=== PATIENT | male | born 1965 | race Caucasian/White ===

== ENCOUNTER → 2017-08-24 | Day surgery (SDC) | payer BC ==
[2017-08-17 15:32] VITALS: BMI 50.3
[~2017-08-24] MED LIST: ALPRAZolam 0.25 MG TAB PO PRN; ALPRAZolam 0.5 MG TAB PO PRN; ASPIRIN 325 MG TAB PO STA; ATORVASTATIN 40 MG TAB PO SCH; ATORVASTATIN 80 MG TAB PO STA; HEPARIN SODIUM 1,000 UN/ML (10ML VL) IV ONE; HEPARIN SODIUM 1,000 UN/ML (10ML VL) ONE; HYDROCHLOROTHIAZIDE 25 MG TAB PO SCH; IOHEXOL 350 MG/ML 125ML BOTTLE INJ ONE; Insulin Aspart (For Pump) 100 UNIT/ML VIAL SQ-PUMP SCH; LIDOCAINE 2% INJ 20 MG/ML (20 ML MDV) ONE; LIDOCAINE 2% INJ 20 MG/ML SQ ONE; MULTIVITAMINS, THERA 1 EACH TAB PO SCH; NITROGLYCERIN SL TABS 0.4 MG TAB SUBLINGUAL PRN; NON-FORMULARY DRUG (Aspirin [Adult Low Dose Aspirin Ec] 81 MG) PO SCH; RAMIPRIL 10 MG PO SCH; RX INFO: IV CONTRAST WAS GIVEN 1 EACH MISC MISCELLANE PRN; SODIUM CHLORIDE 0.9% 1,000 ML IV SCH; SODIUM CHLORIDE 0.9% 1,000 ML in EMPTY BAG 1 BAG IV ONE; VERAPAMIL 2.5 MG/ML 2 ML AMP ONE; VERAPAMIL SYRINGE (5 MG/10 ML) INTRAARTER ONE; diphenhydrAMINE 50 MG/ML 1 ML VIAL IVP ONE; diphenhydrAMINE 50 MG/ML 1 ML VIAL ONE; fentaNYL (PF) 50 MCG/ML 2 ML AMP IV ONE; fentaNYL (PF) 50 MCG/ML 2 ML AMP ONE
[2017-08-24 09:37] VITALS: RESP 18; TEMP 98
[2017-08-24 09:46] LABS: Glucose,Whole Blood 286 mg/dL (75-99)
[2017-08-24 10:32] LABS: Glucose,Whole Blood 300 mg/dL (75-99)
[2017-08-24 11:55] LABS: Glucose,Whole Blood 291 mg/dL (75-99)
--- NOTE | 2017-08-24 12:21 | CC ---
CARDIAC CATHETERIZATION REPORT Mr. Frank is a 52-year-old male with known history of hypertension, hyperlipidemia, diabetes mellitus, who had episode of arrhythmia. He has dyspnea on exertion. Underwent myocardial perfusion imaging that revealed evidence of inducible ischemia involving the inferoapical wall. In view of that, recommendation was made regarding cardiac catheterization. The procedure as well as the risks and complications were discussed with the patient who is in full understanding and agreement. PROCEDURE: Patient was brought to the computer lab aide in a fasting semi-sedated state after receiving fentanyl and Benadryl and achieving moderate conscious sedated state. Using Xylocaine anesthesia in the Seldinger technique, 6-[place] sheath was introduced in the right radial artery. Selective right and left coronary angiography performed using 5-[place] 3.5 bend right and left Amy catheter. Multiple views of the coronary artery including hemiaxial views were obtained. Following that, 5-[place] tight pigtail catheter was introduced into the left ventricle and a 30-degree DEL CID view of the left ventricle was obtained. Following that, the catheter and sheaths were removed. Hemostasis was obtained with deployment of a TR band. There was no immediate complication. Patient is returned to his room in stable condition. Of note, the patient received 5000 units of intravenous heparin as well as intra-arterial verapamil. FINDINGS: LEFT MAIN: This is a large-size vessel bifurcating in left circumflex and left anterior descending artery. Left main coronary artery is without any significant obstructive coronary artery disease. LEFT ANTERIOR DESCENDING ARTERY: This is a large-size vessel reaching towards the apex with a wraparound apex segment giving rise to a large diagonal branch. The left anterior descending artery as well as branches have no evidence of obstructive coronary artery disease. LEFT CIRCUMFLEX: This is a nondominant vessel giving. It is moderate to small in caliber giving rise to 2 obtuse marginal branches. The left circumflex as well as branches have no evidence of obstructive coronary artery disease. RIGHT CORONARY ARTERY: This is a large dominant vessel bifurcating in PDA and posterolateral segment and branches. The right PDA reaches towards the inferoapical segment. The right coronary artery and its branches have no evidence of obstructive coronary artery disease. LEFT VENTRICULOGRAM: Left ventriculogram is performed in 30-degree DEL CID view and revealed a normal left ventricular size and systolic function. Ejection fraction is 60%. There was no significant mitral regurgitation. HEMODYNAMICS: There was no gradient across the aortic valve. The left ventricle end- diastolic pressure was 16 to 18 mmHg. CONCLUSION: 1. Normal coronary arteries. 2. Normal left ventricular size and systolic function. RECOMMENDATION: In view of finding anatomy, recommend to continue medical therapy with aggressive coronary risk medications that have been initiated. Those findings and recommendation were discussed with the patient and his family and are in full understanding and agreement. Duration of procedure is 19 minutes. ORESTES / VADIM: [id number] /
--- NOTE | 2017-08-24 12:27 | LTR ---
August 24, 2017 Re: Darrel Menjivarke Dear Dr. Mcpherson: I had the opportunity to perform cardiac catheterization on Mr. Frank at [facility] on the 24 of August and a full copy of the procedure note will be forwarded to you. In brief, he was found to have no evidence of high-grade stenosis with a preserved left ventricular size and systolic function, and based on those finding, I recommend to continue medical therapy with aggressive coronary risk modification to be initiated. Thank you again for allowing me the opportunity to participate in his care. Please feel free to call for any questions. Sincerely yours, MD LYLA FieldsL / [place]: [phone] /
[2017-08-24 16:12] VITALS: BP 122/68; PULSE 96
== END | disposition home or self-care (01) ==
LOC: CATHCVL 09:13
PROVIDERS: ATTEND Internal Medicine Interventional Cardiology
DX: R94.39 Abnormal result of other cardiovascular function study (principal); R00.0 Tachycardia, unspecified; I10 Essential (primary) hypertension; E78.2 Mixed hyperlipidemia; E11.9 Type 2 diabetes mellitus without complications; Z79.4 Long term (current) use of insulin; G47.33 Obstructive sleep apnea (adult) (pediatric); Z79.82 Long term (current) use of aspirin; Z79.899 Other long term (current) drug therapy
CPT/HCPCS: 93458; C1894; C1769; J2001; J1200; J3010; J1644; Q9967

== ENCOUNTER → 2017-09-11 | Outpatient (CLI) | payer BC ==
--- NOTE | 2017-09-11 15:03 | CONS ---
CONSULTATION This is a is a consultation note from the [facility]. REASON FOR CONSULTATION: Loud snoring, suspected sleep apnea. HISTORY OF PRESENT ILLNESS: This is a 52-year-old male patient. He is morbidly obese. He has loud snoring. He has been told he quits breathing by family members. He goes to bed around 9 pm and wakes up at 8 a.m. in the morning. He is feeling occasionally non refreshed during the day. However he does have major hypersomnia or sleepiness to the point where it is affecting his quality of life. 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 He was recently seen by Cardiology, Dr. Holden and he was advised to come in to the sleep center for a sleep evaluation as the patient's overall clinical features is highly suspicious for obstructive sleep apnea. The patient has gained approximately 20-30 pounds over the past 1 year. He has multiple comorbidities yet no coronary artery disease based on recent cardiac catheterization. PAST MEDICAL HISTORY: Obesity, diabetes, hypertension and hyperlipidemia. SURGICAL HISTORY: Cardiac catheterization. DRUG ALLERGIES: Not known. OUTPATIENT MEDICATION LIST: Includes an insulin pump. In addition to Lipitor 40 a day. Hydrochlorothiazide, ramipril 10 mg p.o. daily and baby aspirin 81 mg p.o. daily. SOCIAL HISTORY: The patient is a nonsmoker. He does not drink coffee. No history of alcohol. No history of IV drugs. FAMILY HISTORY: Noncontributory. REVIEW OF SYSTEMS: 12-point review of system was done. Constitutional: Negative for weight loss. In fact, the patient has been gaining weight. He has got tiredness and some degree of sleepiness. He has been gaining weight. Head and neck: Increased snoring. No sinus allergies. No nasal congestion or postnasal drainage. Cardiovascular: Hypertension, no angina and no palpitations. PULMONARY: Some chronic exertional dyspnea. No cough or sputum production. GI: Negative for nausea, vomiting or abdominal pain. negative for dysuria, frequency, urgency. MUSCULOSKELETAL: Chronic back pain and skin is negative for any ulcerations or wounds. Neuro: Negative for any headaches or dizziness or seizures. Psych: No anxiety or depression. SKIN: Negative for wounds or ulceration. Psych: Negative for any anxiety or depression. PHYSICAL EXAMINATION: BP is 150/92, pulse 93, respirations 16, temp 97.6. Saturation 96% on room air. Weight is 346, height is 69.5 inches, Tenstrike score of 12. BMI is 50.3, neck size is 22 inches. General appearance calm and comfortable. Head is atraumatic, normocephalic. NECK: Supple. No JVD. No goiter or neck mass. Significant crowding in the posterior pharynx. Mallampati class IV. LUNGS: Diminished breath sounds bilaterally otherwise clear. HEART: Sounds regular rhythm. Normal S1, S2. Overall heart sounds are distant. ABDOMEN: Soft. Organs cannot be palpated. There was no rebound tenderness, no guarding. Extremities trace edema. There is no cyanosis or clubbing. NEUROLOGIC: Alert and oriented x3. No focal neurological deficits. PSYCHIATRIC: Negative for anxiety or depression. SKIN: Negative for any wounds, ulcerations or any active cellulitis. IMPRESSION: 1. Chronic fatigue with limited hypersomnia, Tenstrike score of 12. The patient has chronic loud snoring and based on his clinical anatomic features, there is a considerable chance the patient may have an underlying obstructive sleep apnea. This needs to be further investigated. 2. Morbid obesity. BMI of 50.3. 3. Chronic hypersomnia Tenstrike score of 12. 4. Diabetes. 5. Hypertension. 6. Hyperlipidemia. PLAN: 1. Encourage weight loss. 2. Proceed with a screening polysomnogram and decide on treatment accordingly. ORESTES / VADIM: [id number] /
== END | disposition home or self-care (01) ==
LOC: SLEEP 12:58
PROVIDERS: ATTEND Internal Medicine Critical Care Medicine
DX: G47.10 Hypersomnia, unspecified (principal); R06.83 Snoring; R53.82 Chronic fatigue, unspecified; E66.01 Morbid (severe) obesity due to excess calories; E11.9 Type 2 diabetes mellitus without complications; I10 Essential (primary) hypertension; E78.5 Hyperlipidemia, unspecified; Z79.82 Long term (current) use of aspirin; Z79.899 Other long term (current) drug therapy; Z79.4 Long term (current) use of insulin; Z68.43 Body mass index [BMI] 50.0-59.9, adult
CPT/HCPCS: 99211